=== PATIENT | male | born 1970 | race Caucasian/White ===

== ENCOUNTER 2016-06-02 08:37 | Emergency (ER) | payer OTHER | END 2016-06-02 11:18 | disposition home or self-care (01) | LOC: FER 08:37 | DX: S52.511A Displaced fracture of right radial styloid process, initial encounter for closed fracture (principal); S20.212A Contusion of left front wall of thorax, initial encounter; S40.012A Contusion of left shoulder, initial encounter; V49.50XA Passenger injured in collision with unspecified motor vehicles in traffic accident, initial encounter; Y92.410 Unspecified street and highway as the place of occurrence of the external cause | CPT/HCPCS: 71101; 73030; 73130; 90471; 90715 ==